=== PATIENT | female | born 2000 | race Two or more races ===

== ENCOUNTER 2025-05-01 07:11 | Emergency (ER) | payer OTHER ==
[~2025-05-01] VITALS: Ht 160 cm; Wt 45.4 kg
[2025-05-01] MEDS ORDERED: PROMETHAZINE HCL 50 MG/ML AMPUL IM STA (07:45)
[2025-05-01] MEDS ORDERED: KETOROLAC TROMETHAMINE 30 MG VIAL IV STA (07:45)
[2025-05-01] MEDS ORDERED: TAMSULOSIN HCL 0.4 MG CAP PO STA (07:46)
[2025-05-01] MEDS ORDERED: PROMETHAZINE HCL 50 MG/ML AMPUL IM ONE (07:55)
[2025-05-01] MEDS ORDERED: TAMSULOSIN HCL 0.4 MG CAP PO ONE (07:55)
[2025-05-01] MEDS ORDERED: KETOROLAC TROMETHAMINE 30 MG VIAL ONE ×2 (07:55→10:14)
[2025-05-01] MEDS ORDERED: SODIUM CHLORIDE 0.45 % 1,000 ML IV ONE (08:00)
[2025-05-01 08:51] LABS: BASO % 0.3 % (0.1-1.2); EOS # 0.03 (0.04-0.54); EOS % 0.2 % (0.7-7.0); HEMATOCRIT 35.8 % (34.1-44.9); HEMOGLOBIN 12.5 g/dL (11.2-15.7); LYMPH # 1.45 (1.18-3.74); LYMPH % 8.8 % (19.3-53.1); MEAN CORPUSCULAR HEMOGLOBIN 29.8 pg (25.6-32.2); MONO # 0.76 (0.24-0.82); MONO % 4.6 % (4.7-12.5); NEUT % 85.6 % (34.0-71.1); PLATELET COUNT 342 K/uL (163-369); RED BLOOD COUNT 4.19 M/uL (3.93-5.22); RED CELL DISTRIBUTION WIDTH 12.7 % (11.6-14.4)
[2025-05-01 09:08] LABS: CALCIUM 9.6 mg/dL (8.5-10.1); CREATININE SERUM 0.93 mg/dL (0.55-1.02); GFR 72.87; POTASSIUM 3.27 mEq/L (3.5-5.1)
[2025-05-01 10:10] LABS: PH,URINE 6.5 (5.0-8.0); URINE APPEARANCE Cloudy; URINE BILIRRUBIN Negative (NEGATIVE); URINE BLOOD Large; URINE COLOR Dark Yellow; URINE GLUCOSE Negative (NEGATIVE); URINE LEUKOCYTE Small; URINE NITRATE Negative
[2025-05-01 10:12] LABS: URINE BACTERIA 176.2 uL (0.0-1933); URINE EPITHELIAL CELLS 43.6 uL (0.0-38.8); URINE WBC 34.9 uL (0.0-23.2)
[2025-05-01] MEDS ORDERED: KETOROLAC TROMETHAMINE 30 MG VIAL IV ONE (10:15)
[2025-05-01 10:30] LABS: URINE CAST 0.14 uL (0.0-1.40); URINE KETONE >=160 (NEGATIVE); URINE PROTEIN 100 (NEGATIVE)
[2025-05-01 10:31] LABS: TYPE CELLS RENAL TUBULAR
== END 2025-05-01 12:14 | disposition home or self-care (01) ==
LOC: ER 07:28
PROVIDERS: General Practice
DX: R10.9 Unspecified abdominal pain (principal); Z87.442 Personal history of urinary calculi; N20.0 Calculus of kidney; N20.1 Calculus of ureter